=== PATIENT | male | born 1965 | race Caucasian/White ===

== ENCOUNTER 2016-11-14 12:08 | Emergency (ER) | payer MEDICARE, OTHER ==
[~2016-11-14] VITALS: Ht 188 cm; Wt 90.0 kg
[~2016-11-14 12:08] MED LIST: DIPH25CA85 PO; DIVA500T52 PO; RISP3 PO
[2016-11-14] MEDS ORDERED: GUAIFCF5L PO (12:21)
[2016-11-14 12:41] LABS: EOSINOPHILS % (AUTO) 1.3 % (1.0-6.0); HEMATOCRIT 43.4 % (41-53); HEMOGLOBIN 14.1 g/dL (13.5-17.5); LYMPHOCYTES # (AUTO) 0.9 K/uL (1.0-4.8); LYMPHOCYTES % (AUTO) 10.9 % (22.0-44.0); MEAN CORPUSCULAR HEMOGLOBIN 31.9 pg (26.0-34.0); MEAN CORPUSCULAR HGB CONC 32.5 G/dL (31.0-37.0); MEAN CORPUSCULAR VOLUME 98 fL (80-100); MONOCYTES # (AUTO) 0.5 K/uL (0.1-1.0); MONOCYTES % (AUTO) 6.5 % (2.0-9.0); NEUTROPHILS # (AUTO) 6.4 K/uL (1.8-7.7); NEUTROPHILS % (AUTO) 80.3 % (40.0-70.0); PLATELET COUNT (AUTO) 219 K/uL (150-450); RED BLOOD CELL COUNT(AUTO) 4.42 MIL/uL (4.50-5.90); WHITE BLOOD COUNT (AUTO) 7.9 K/uL (4.5-11.0)
[2016-11-14 12:51] LABS: ANION GAP 8 mmol/L (8-16); CALCIUM, TOTAL 9.2 mg/dL (8.8-10.5); CARBON DIOXIDE 27 mmol/L (22-29); CHLORIDE 100 mmol/L (98-107); CREATININE 1.26 mg/dL (0.60-1.30); GLOMERULAR FILTR. RATE CALC 60 mL/min (>60); POTASSIUM 4.3 mmol/L (3.5-5.1); SODIUM SERUM 135 mmol/L (136-145); UREA NITROGEN, BLOOD 8 mg/dL (7-18)
[2016-11-14 12:56] LABS: ALANINE AMINOTRANSFERASE 24 U/L (12-78); ALBUMIN 3.7 g/dL (3.4-5.0); ASPARTATE AMINOTRANSFERASE 21 U/L (15-37); BILIRUBIN,TOTAL 0.5 mg/dL (0.1-1.0); TOTAL PROTEIN, SERUM 6.5 g/dL (6.4-8.2)
[2016-11-14] MEDS ORDERED: SODIUM CHLORIDE 0.9% 1,000 ML IV ONE (15:45)
[2016-11-14 16:59] VITALS: BP 107/67
== END 2016-11-14 17:13 | disposition home or self-care (01) ==
LOC: EMS 12:11
DX: R42 Dizziness and giddiness (principal); E86.0 Dehydration; F10.129 Alcohol abuse with intoxication, unspecified; F17.210 Nicotine dependence, cigarettes, uncomplicated; Y90.0 Blood alcohol level of less than 20 mg/100 ml; Z88.8 Allergy status to other drugs, medicaments and biological substances
CPT/HCPCS: 36415; 71010; 80053; 85025; 96360; 99285; G0480; J7030

== ENCOUNTER 2020-02-26 11:01 | Emergency (ER) | payer MEDICARE, OTHER ==
[~2020-02-26] VITALS: Ht 185.4 cm; Wt 72.7 kg
[~2020-02-26 11:01] MED LIST changes: +DIVA-80 PO; -DIVA500T52 PO; +GUAIFCF5L PO; -RISP3 PO; +RISP3TAB14 PO
[2020-02-26] MEDS ORDERED: SODIUM CHLORIDE 0.9% 1,000 ML IV ONE (11:45)
[2020-02-26 12:46] LABS: BASOPHILS % (AUTO) 2.7 % (0.0-2.0); EOSINOPHILS % (AUTO) 5.2 % (1.0-6.0); HEMATOCRIT 38.8 % (41-53); LYMPHOCYTES # (AUTO) 1.3 K/uL (1.0-4.8); LYMPHOCYTES % (AUTO) 25.6 % (22.0-44.0); MEAN CORPUSCULAR HEMOGLOBIN 32.5 pg (26.0-34.0); MEAN CORPUSCULAR HGB CONC 33.6 G/dL (31.0-37.0); MEAN CORPUSCULAR VOLUME 97 fL (80-100); MONOCYTES # (AUTO) 0.4 K/uL (0.1-1.0); NEUTROPHILS % (AUTO) 58.5 % (40.0-70.0); PLATELET COUNT (AUTO) 212 K/uL (150-450); RED BLOOD CELL COUNT(AUTO) 4.01 MIL/uL (4.50-5.90); RED CELL DISTRIBUTION WIDTH 13.2 % (11.5-14.5)
[2020-02-26 12:56] LABS: ANION GAP 2 mmol/L (8-16); CARBON DIOXIDE 28 mmol/L (22-29); CHLORIDE 99 mmol/L (98-107); CREATININE 1.11 mg/dL (0.60-1.30); GLOMERULAR FILTR. RATE CALC > 60 mL/min (>60); GLUCOSE,RANDOM 86 mg/dL (70-110); POTASSIUM 3.7 mmol/L (3.5-5.1); SODIUM SERUM 129 mmol/L (136-145); UREA NITROGEN, BLOOD 8 mg/dL (7-18)
[2020-02-26 13:01] LABS: ALANINE AMINOTRANSFERASE 29 U/L (12-78); ALBUMIN 3.4 g/dL (3.4-5.0); ALKALINE PHOSPHATASE 64 U/L (46-116); ASPARTATE AMINOTRANSFERASE 16 U/L (15-37); BILIRUBIN,TOTAL 0.7 mg/dL (0.1-1.0); TOTAL PROTEIN, SERUM 6.1 g/dL (6.4-8.2)
[2020-02-26 13:03] LABS: LACTIC ACID 1.2 mmol/L (0.4-2.0)
[2020-02-26 14:00] VITALS: BP 92/46
== END 2020-02-26 14:30 | disposition home or self-care (01) ==
LOC: EMS 11:08
DX: R44.0 Auditory hallucinations (principal); E87.1 Hypo-osmolality and hyponatremia; F31.9 Bipolar disorder, unspecified; F17.210 Nicotine dependence, cigarettes, uncomplicated; Z88.8 Allergy status to other drugs, medicaments and biological substances
CPT/HCPCS: 36415; 71045; 80053; 82550; 83605; 85025; 87040; 99284; G0480

== ENCOUNTER 2020-03-15 15:52 | Emergency (ER) | payer MEDICARE, OTHER ==
[~2020-03-15] VITALS: Ht 188 cm; Wt 88.6 kg
[2020-03-15 15:57] VITALS: BP 92/55
== END 2020-03-15 18:04 | disposition home or self-care (01) ==
LOC: EMS 15:52
DX: F20.9 Schizophrenia, unspecified (principal); F31.9 Bipolar disorder, unspecified; F17.210 Nicotine dependence, cigarettes, uncomplicated; Z88.8 Allergy status to other drugs, medicaments and biological substances

== ENCOUNTER 2020-06-28 21:24 | Emergency (ER) | payer MEDICARE, OTHER ==
[~2020-06-28] VITALS: Ht 188 cm; Wt 90.0 kg
[~2020-06-28 21:24] MED LIST changes: -GUAIFCF5L PO; -RISP3TAB14 PO; +RISP3TAB35 PO
[2020-06-28 22:30] VITALS: BP 129/88
[2020-06-28 23:38] LABS: COVID AG,FIA SOURCE NASAL SWAB
[2020-06-29 00:13] LABS: AMPHET/METH SCREEN,URINE NEGATIVE (NEGATIVE); BARBITURATE SCREEN, URINE NEGATIVE (NEGATIVE); BENZODIAZEPINES SCREEN,URINE NEGATIVE (NEGATIVE); CANNABINOID SCREEN,URINE NEGATIVE (NEGATIVE); COCAINE SCREEN,URINE NEGATIVE (NEGATIVE); METHADONE SCREEN, URINE NEGATIVE (NEGATIVE); OPIATE SCREEN,URINE NEGATIVE (NEGATIVE)
[2020-06-29 00:15] LABS: PHENCYCLIDINE SCREEN,URINE NEGATIVE (NEGATIVE)
== END 2020-06-29 07:32 | disposition home or self-care (01) ==
LOC: EMS 21:24
DX: R45.851 Suicidal ideations (principal); F31.9 Bipolar disorder, unspecified; F20.9 Schizophrenia, unspecified; F17.210 Nicotine dependence, cigarettes, uncomplicated; Z20.828 Contact with and (suspected) exposure to other viral communicable diseases; Z88.8 Allergy status to other drugs, medicaments and biological substances
CPT/HCPCS: 87426

== ENCOUNTER 2020-07-01 01:58 | Emergency (ER) | payer MEDICARE, OTHER ==
[~2020-07-01] VITALS: Ht 188 cm; Wt 72.7 kg
[2020-07-01 04:48] VITALS: BP 123/72
== END 2020-07-01 05:57 | disposition home or self-care (01) ==
LOC: EMS 02:00
DX: F20.9 Schizophrenia, unspecified (principal); F17.210 Nicotine dependence, cigarettes, uncomplicated; Z88.8 Allergy status to other drugs, medicaments and biological substances; Z79.899 Other long term (current) drug therapy
CPT/HCPCS: Z7502

== ENCOUNTER 2020-08-25 10:50 | Inpatient (IN) | payer MEDICARE, MEDICAID ==
[~2020-08-25] VITALS: Ht 188 cm; Wt 75.8 kg
[2020-08-25 11:33] LABS: BASOPHILS % (AUTO) 1.3 % (0.0-2.0); EOSINOPHILS % (AUTO) 2.4 % (1.0-6.0); HEMATOCRIT 38.5 % (41-53); LYMPHOCYTES # (AUTO) 1.4 K/uL (1.0-4.8); MEAN CORPUSCULAR HEMOGLOBIN 33.4 pg (26.0-34.0); MEAN CORPUSCULAR HGB CONC 33.8 G/dL (31.0-37.0); MEAN CORPUSCULAR VOLUME 99 fL (80-100); MONOCYTES # (AUTO) 0.7 K/uL (0.1-1.0); MONOCYTES % (AUTO) 7.1 % (2.0-9.0); NEUTROPHILS # (AUTO) 7.4 K/uL (1.8-7.7); NEUTROPHILS % (AUTO) 75.2 % (40.0-70.0); PLATELET COUNT (AUTO) 224 K/uL (150-450); RED CELL DISTRIBUTION WIDTH 13.5 % (11.5-14.5)
[2020-08-25 11:43] LABS: ANION GAP 4 mmol/L (8-16); CALCIUM, TOTAL 9.2 mg/dL (8.8-10.5); CARBON DIOXIDE 31 mmol/L (22-29); CHLORIDE 100 mmol/L (98-107); GLOMERULAR FILTR. RATE CALC > 60 mL/min (>60); GLUCOSE,RANDOM 108 mg/dL (70-110); POTASSIUM 4.4 mmol/L (3.5-5.1); SODIUM SERUM 135 mmol/L (136-145); UREA NITROGEN, BLOOD 10 mg/dL (7-18)
[2020-08-25 11:48] LABS: ALANINE AMINOTRANSFERASE 19 U/L (12-78); ALBUMIN 3.5 g/dL (3.4-5.0); ALKALINE PHOSPHATASE 73 U/L (46-116); ASPARTATE AMINOTRANSFERASE 16 U/L (15-37); BILIRUBIN,TOTAL 0.5 mg/dL (0.1-1.0); TOTAL PROTEIN, SERUM 6.7 g/dL (6.4-8.2)
[2020-08-25] MEDS ORDERED: ZOLPIDEM TARTRATE 5 MG TABLET PO PRN (12:30)
[2020-08-25] MEDS ORDERED: LORazepam 2 MG TABLET PO PRN (12:30)
[2020-08-25] MEDS ORDERED: ChlorproMAZINE HCL 100 MG TABLET PO PRN (12:30)
[2020-08-25 13:06] LABS: COVID AG,FIA SOURCE NASOPHARYNGEAL
[2020-08-25 13:17] LABS: APPEARANCE,URINE CLEAR (CLEAR); BILIRUBIN,URINE NEGATIVE (NEGATIVE); GLUCOSE, URINE (UA) NEGATIVE (NEGATIVE); KETONES,URINE NEGATIVE (NEGATIVE); LEUKOCYTE ESTERASE ,URINE NEGATIVE (NEGATIVE); NITRATE,URINE NEGATIVE (NEGATIVE); OCCULT BLOOD,URINE NEGATIVE (NEGATIVE); PROTEIN,URINE NEGATIVE (NEGATIVE); UROBILINOGEN,URINE 0.2 mg/dL (<=1.0)
[2020-08-25 13:25] LABS: AMPHET/METH SCREEN,URINE NEGATIVE (NEGATIVE); BARBITURATE SCREEN, URINE NEGATIVE (NEGATIVE); BENZODIAZEPINES SCREEN,URINE NEGATIVE (NEGATIVE); CANNABINOID SCREEN,URINE NEGATIVE (NEGATIVE); COCAINE SCREEN,URINE NEGATIVE (NEGATIVE); METHADONE SCREEN, URINE NEGATIVE (NEGATIVE); OPIATE SCREEN,URINE NEGATIVE (NEGATIVE)
[2020-08-25 13:26] LABS: PHENCYCLIDINE SCREEN,URINE NEGATIVE (NEGATIVE)
[2020-08-25 14:44] VITALS: BP 115/79
[2020-08-25 14:49] VITALS: BP 115/79
[2020-08-25] MEDS ORDERED: GuaiFENesin/D-METHORPHAN [SUGAR-FREE] 200-20MG/10 ML SYRUP UDCUP PO PRN (15:30)
[2020-08-25] MEDS ORDERED: PROMETHAZINE HCL 25 MG TABLET PO PRN (15:30)
[2020-08-25] MEDS ORDERED: ACETAMINOPHEN 325 MG TABLET PO PRN (15:30)
[2020-08-25] MEDS ORDERED: MAGNESIUM HYDROXIDE SUSPENSION 30 ML UDCUP PO PRN (15:30)
[2020-08-25] MEDS ORDERED: MAG HYDROX/AL HYDROX/SIMETH ES 30 ML SUSPENSION UDCUP PO PRN (15:30)
[2020-08-25] MEDS ORDERED: TUBERCULIN, PURIFIED PROTEIN DERIVATIVE 5 TU/0.1 ML SYRINGE ID ONE (15:30)
[2020-08-25] MEDS ORDERED: HydrOXYzine PAMOATE 50 MG CAPSULE PO PRN (15:30)
[2020-08-25] MEDS ORDERED: OLANZapine 5 MG RAPDIS TABLET PO PRN (15:30)
[2020-08-25] MEDS ORDERED: LOPERAMIDE HCL 2 MG CAPSULE PO PRN (15:30)
[2020-08-25 16:00] VITALS: BP 109/68
[2020-08-25] MEDS: THIAMINE 100 MG TABLET PO SCH (17:36)
[2020-08-25] MEDS: DiphenhydrAMINE HCL 25 MG CAPSULE PO SCH (17:39)
[2020-08-25] MEDS: OLANZapine 5 MG RAPDIS TABLET PO SCH (21:00)
[2020-08-25] MEDS: DIVALPROEX SODIUM 500 MG ER TABLET PO SCH (21:00)
[2020-08-25] MEDS: MELATONIN 5 MG TABLET PO SCH (21:00)
[2020-08-25] MEDS ORDERED: RisperiDONE 3 MG TABLET PO SCH (21:00)
[2020-08-26 07:01] LABS: HEMOGLOBIN A1C 5.1 % (3.8-5.6)
[2020-08-26 07:03] LABS: CHOL/HDL RATIO 2.9 (4.2-7.3); FREE T4 (FREE THYROXINE) 0.98 ng/dL (0.76-1.46); THYROID STIMULATING HORMONE 3.34 uIU/mL (0.36-3.74)
[2020-08-26] MEDS: MULTIVITAMINS WITH MINERALS, THERAPEUTIC TABLET PO SCH (08:21)
[2020-08-26] MEDS: DIVALPROEX SODIUM 500 MG ER TABLET PO SCH ×2 (08:21→21:00)
[2020-08-26] MEDS: FOLIC ACID 1 MG TABLET PO SCH (08:22)
[2020-08-26] MEDS: THIAMINE 100 MG TABLET PO SCH ×2 (08:22→16:13)
[2020-08-26] MEDS: NALTREXONE HCL 50 MG TABLET PO SCH (08:22)
[2020-08-26] MEDS: OMEGA-3/DHA/EPA/FISH OIL 1,000 MG CAPSULE PO SCH (08:22)
[2020-08-26] MEDS: DiphenhydrAMINE HCL 25 MG CAPSULE PO SCH ×2 (08:26→16:13)
[2020-08-26 09:55] VITALS: BP 130/75
[2020-08-26 16:16] VITALS: BP 126/70
[2020-08-26] MEDS: MELATONIN 5 MG TABLET PO SCH (21:00)
[2020-08-26] MEDS: OLANZapine 5 MG RAPDIS TABLET PO SCH (21:00)
[2020-08-26] MEDS ORDERED: MELA5TAB3 PO (21:15)
[2020-08-26] MEDS ORDERED: OLAN5TAB30 PO (21:15)
[2020-08-26] MEDS ORDERED: NALT50TA PO (21:15)
[2020-08-26] MEDS ORDERED: OMEG-135 PO (21:15)
[2020-08-26] MEDS ORDERED: DIVA-80 PO (21:15)
[2020-08-26] MEDS ORDERED: DIPH25 PO (21:15)
[2020-08-27] MEDS: FOLIC ACID 1 MG TABLET PO SCH (09:07)
[2020-08-27] MEDS: OMEGA-3/DHA/EPA/FISH OIL 1,000 MG CAPSULE PO SCH (09:07)
[2020-08-27] MEDS: DiphenhydrAMINE HCL 25 MG CAPSULE PO SCH (09:07)
[2020-08-27] MEDS: NALTREXONE HCL 50 MG TABLET PO SCH (09:07)
[2020-08-27] MEDS: MULTIVITAMINS WITH MINERALS, THERAPEUTIC TABLET PO SCH (09:08)
[2020-08-27] MEDS: THIAMINE 100 MG TABLET PO SCH (09:08)
[2020-08-27] MEDS: DIVALPROEX SODIUM 500 MG ER TABLET PO SCH (09:09)
[2020-08-27] MEDS ORDERED: FOLI-130 PO (10:32)
[2020-08-27] MEDS ORDERED: THIA100T80 PO (10:32)
[2020-08-27] MEDS ORDERED: MULT-1239 PO (10:32)
== END 2020-08-27 12:10 | disposition home or self-care (01) | DRG 885 ==
LOC: EMS 10:50 → 3EX 13:48
PROVIDERS: ADMIT Psychiatry & Neurology Psychiatry; ATTEND Psychiatry & Neurology Psychiatry
DX: F20.0 Paranoid schizophrenia (principal); E87.1 Hypo-osmolality and hyponatremia; R45.851 Suicidal ideations; F31.9 Bipolar disorder, unspecified; R63.0 Anorexia; Z68.21 Body mass index [BMI] 21.0-21.9, adult; Z88.8 Allergy status to other drugs, medicaments and biological substances; Z91.19 Patient's noncompliance with other medical treatment and regimen; Z91.5 Personal history of self-harm; F17.200 Nicotine dependence, unspecified, uncomplicated; J44.9 Chronic obstructive pulmonary disease, unspecified; E03.9 Hypothyroidism, unspecified; E78.5 Hyperlipidemia, unspecified; K21.9 Gastro-esophageal reflux disease without esophagitis; R10.13 Epigastric pain; I10 Essential (primary) hypertension; D64.9 Anemia, unspecified; N40.0 Benign prostatic hyperplasia without lower urinary tract symptoms; Z20.822 Contact with and (suspected) exposure to COVID-19
CPT/HCPCS: 83036; 84439; 84443; 86592; 87426; 99285; A9575; G0378; G0480

== ENCOUNTER 2021-07-17 13:25 | Emergency (ER) | payer MEDICARE, OTHER ==
[~2021-07-17] VITALS: Ht 188 cm; Wt 90.0 kg
[~2021-07-17 13:25] MED LIST changes: -DIPH25CA85 PO; -DIVA-80 PO; +FOLI-130 PO; +MELA5TAB40 PO; +MULT-1239 PO; +NALT50TA PO; +OMEG-135 PO; +PALI156D IM; -RISP3TAB35 PO
[2021-07-17 13:28] VITALS: BP 135/69
== END 2021-07-17 16:48 | disposition left against medical advice (07) ==
LOC: EMS 13:25
DX: R45.851 Suicidal ideations (principal); F41.9 Anxiety disorder, unspecified; F20.9 Schizophrenia, unspecified; Z88.8 Allergy status to other drugs, medicaments and biological substances; Z79.899 Other long term (current) drug therapy
CPT/HCPCS: 99284

== ENCOUNTER 2021-10-31 01:54 | Emergency (ER) | payer MEDICARE, OTHER ==
[~2021-10-31] VITALS: Ht 188 cm; Wt 81.8 kg
[~2021-10-31 01:54] MED LIST changes: +OMEG-108 PO; -OMEG-135 PO
[2021-10-31 02:13] VITALS: BP 125/73
[2021-10-31] MEDS ORDERED: RISP0.5T39 PO (02:17)
[2021-10-31] MEDS ORDERED: DIVA125T32 PO (02:17)
[2021-10-31 02:24] LABS: EOSINOPHILS % (AUTO) 4.6 % (1.0-6.0); HEMATOCRIT 37.8 % (41-53); HEMOGLOBIN 13.2 g/dL (13.5-17.5); LYMPHOCYTES # (AUTO) 1.8 K/uL (1.0-4.8); LYMPHOCYTES % (AUTO) 25.9 % (22.0-44.0); MEAN CORPUSCULAR HEMOGLOBIN 33.2 pg (26.0-34.0); MEAN CORPUSCULAR HGB CONC 34.8 G/dL (31.0-37.0); MEAN CORPUSCULAR VOLUME 95 fL (80-100); MONOCYTES # (AUTO) 0.7 K/uL (0.1-1.0); MONOCYTES % (AUTO) 10.5 % (2.0-9.0); NEUTROPHILS # (AUTO) 3.9 K/uL (1.8-7.7); PLATELET COUNT (AUTO) 234 K/uL (150-450); RED BLOOD CELL COUNT(AUTO) 3.97 MIL/uL (4.50-5.90); RED CELL DISTRIBUTION WIDTH 13.8 % (11.5-14.5)
[2021-10-31 02:32] LABS: ANION GAP 5 mmol/L (8-16); CALCIUM, TOTAL 9.4 mg/dL (8.8-10.5); CARBON DIOXIDE 33 mmol/L (22-29); CHLORIDE 97 mmol/L (98-107); CREATININE 0.89 mg/dL (0.60-1.30); GLOMERULAR FILTR. RATE CALC > 60 mL/min (>60); GLUCOSE,RANDOM 76 mg/dL (70-110); POTASSIUM 3.8 mmol/L (3.5-5.1); SODIUM SERUM 135 mmol/L (136-145); UREA NITROGEN, BLOOD 6 mg/dL (7-18)
[2021-10-31 02:39] LABS: ALANINE AMINOTRANSFERASE 17 U/L (12-78); ALBUMIN 3.8 g/dL (3.4-5.0); ALKALINE PHOSPHATASE 96 U/L (46-116); ASPARTATE AMINOTRANSFERASE 9 U/L (15-37); BILIRUBIN,TOTAL 0.4 mg/dL (0.1-1.0); TOTAL PROTEIN, SERUM 6.9 g/dL (6.4-8.2)
[2021-10-31 03:08] LABS: COVID AG,FIA SOURCE NASOPHARYNGEAL
== END 2021-10-31 05:36 | disposition home or self-care (01) ==
LOC: EMS 01:54
DX: F20.9 Schizophrenia, unspecified (principal); Z20.822 Contact with and (suspected) exposure to COVID-19; Z88.8 Allergy status to other drugs, medicaments and biological substances
CPT/HCPCS: 36415; 80053; 85025; 87426; 99284; G0480

== ENCOUNTER 2022-07-12 00:26 | Inpatient (IN) | payer MEDICARE, MEDICAID ==
[~2022-07-12] VITALS: Ht 188 cm; Wt 77.8 kg
[~2022-07-12 00:26] MED LIST changes: +DIVA125T32 PO; -OMEG-108 PO; +OMEG-135 PO; +RISP0.5T39 PO
[2022-07-12 02:25] LABS: BASOPHILS % (AUTO) 1.5 % (0.0-2.0); EOSINOPHILS % (AUTO) 5.2 % (1.0-6.0); HEMATOCRIT 36.4 % (41-53); HEMOGLOBIN 12.8 g/dL (13.5-17.5); LYMPHOCYTES % (AUTO) 27.6 % (22.0-44.0); MEAN CORPUSCULAR HEMOGLOBIN 33.9 pg (26.0-34.0); MEAN CORPUSCULAR HGB CONC 35.1 G/dL (31.0-37.0); MEAN CORPUSCULAR VOLUME 97 fL (80-100); MONOCYTES # (AUTO) 0.7 K/uL (0.1-1.0); MONOCYTES % (AUTO) 8.8 % (2.0-9.0); NEUTROPHILS # (AUTO) 4.2 K/uL (1.8-7.7); NEUTROPHILS % (AUTO) 56.9 % (40.0-70.0); PLATELET COUNT (AUTO) 239 K/uL (150-450); RED BLOOD CELL COUNT(AUTO) 3.78 MIL/uL (4.50-5.90); RED CELL DISTRIBUTION WIDTH 13.8 % (11.5-14.5)
[2022-07-12 02:33] LABS: AMPHET/METH SCREEN,URINE NEGATIVE (NEGATIVE); BARBITURATE SCREEN, URINE NEGATIVE (NEGATIVE); BENZODIAZEPINES SCREEN,URINE NEGATIVE (NEGATIVE); CANNABINOID SCREEN,URINE NEGATIVE (NEGATIVE); COCAINE SCREEN,URINE NEGATIVE (NEGATIVE); METHADONE SCREEN, URINE NEGATIVE (NEGATIVE); OPIATE SCREEN,URINE NEGATIVE (NEGATIVE)
[2022-07-12 02:34] LABS: ANION GAP 1 mmol/L (8-16); CALCIUM, TOTAL 9.4 mg/dL (8.8-10.5); CARBON DIOXIDE 34 mmol/L (22-29); CHLORIDE 97 mmol/L (98-107); CREATININE 1.03 mg/dL (0.60-1.30); GLUCOSE,RANDOM 82 mg/dL (70-110); POTASSIUM 4.5 mmol/L (3.5-5.1); SODIUM SERUM 132 mmol/L (136-145); UREA NITROGEN, BLOOD 14 mg/dL (7-18)
[2022-07-12 02:34] LABS: PHENCYCLIDINE SCREEN,URINE NEGATIVE (NEGATIVE)
[2022-07-12 02:35] LABS: GLOMERULAR FILTR. RATE CALC > 60 mL/min (>60)
[2022-07-12 02:41] LABS: ALANINE AMINOTRANSFERASE 15 U/L (12-78); ALBUMIN 3.7 g/dL (3.4-5.0); ALKALINE PHOSPHATASE 104 U/L (46-116); ASPARTATE AMINOTRANSFERASE 15 U/L (15-37); BILIRUBIN,TOTAL 0.4 mg/dL (0.1-1.0); TOTAL PROTEIN, SERUM 6.9 g/dL (6.4-8.2); VALPROIC ACID 40 mcg/mL (50-100)
[2022-07-12] MEDS ORDERED: RisperiDONE 1 MG TABLET PO ONE (02:45)
[2022-07-12 07:10] LABS: COVID AG,FIA SOURCE NASOPHARYNGEAL
[2022-07-12] MEDS ORDERED: LORazepam 2 MG TABLET PO PRN (07:15)
[2022-07-12] MEDS ORDERED: HALOPERIDOL 5 MG TABLET PO PRN (07:15)
[2022-07-12] MEDS ORDERED: ZOLPIDEM TARTRATE 10 MG TABLET PO PRN (07:15)
[2022-07-12 11:36] VITALS: BP 130/71
[2022-07-12] MEDS ORDERED: PNEUMOCOCCAL VACCINE POLYVALENT 0.5 ML VIAL [PPSV23] IM. ONE (12:00)
[2022-07-12] MEDS ORDERED: INFLUENZA VIRUS VACCINE QVS 2022-23 (6MO+)/PF 60 MCG/0.5 ML SYRINGE IM. ONE (12:15)
[2022-07-12] MEDS ORDERED: RisperiDONE 1 MG TABLET PO PRN (18:15)
[2022-07-12] MEDS ORDERED: LOPERAMIDE HCL 2 MG CAPSULE PO PRN ×3 (18:15)
[2022-07-12] MEDS ORDERED: HydrOXYzine PAMOATE 50 MG CAPSULE PO PRN ×3 (18:15)
[2022-07-12] MEDS ORDERED: GuaiFENesin/D-METHORPHAN [SUGAR-FREE] 200-20MG/10 ML SYRUP UDCUP PO PRN ×3 (18:15)
[2022-07-12] MEDS ORDERED: CYANOCOBALAMIN 1,000 MCG/ML VIAL IM ONE ×3 (18:15)
[2022-07-12] MEDS ORDERED: TUBERCULIN, PURIFIED PROTEIN DERIVATIVE 5 TU/0.1 ML SYRINGE ID ONE (18:30)
[2022-07-12 20:13] VITALS: BP 125/67
[2022-07-12] MEDS: MELATONIN 5 MG TABLET PO SCH (20:30)
[2022-07-12] MEDS: RisperiDONE 4 MG TABLET PO SCH (20:31)
[2022-07-12] MEDS: DIVALPROEX SODIUM 500 MG ER TABLET PO SCH (20:31)
[2022-07-12] MEDS: DiphenhydrAMINE HCL 25 MG CAPSULE PO SCH (20:31)
[2022-07-13 08:30] VITALS: BP 129/66
[2022-07-13] MEDS ORDERED: FOLIC ACID 1 MG TABLET PO SCH ×2 (09:00)
[2022-07-13] MEDS ORDERED: THIAMINE 100 MG TABLET PO SCH ×2 (09:00)
[2022-07-13] MEDS ORDERED: MULTIVITAMINS WITH MINERALS, THERAPEUTIC TABLET PO SCH ×2 (09:00)
[2022-07-13] MEDS: NALTREXONE HCL 50 MG TABLET PO SCH (09:18)
[2022-07-13] MEDS: MULTIVITAMINS WITH MINERALS, THERAPEUTIC TABLET PO SCH (09:18)
[2022-07-13] MEDS: OMEGA-3/DHA/EPA/FISH OIL 1,000 MG CAPSULE PO SCH (09:18)
[2022-07-13] MEDS: FOLIC ACID 1 MG TABLET PO SCH (09:19)
[2022-07-13] MEDS: THIAMINE 100 MG TABLET PO SCH ×2 (09:19→16:55)
[2022-07-13] MEDS ORDERED: RISP4TAB73 PO (14:55)
[2022-07-13] MEDS ORDERED: MELA5TAB40 PO (14:55)
[2022-07-13] MEDS ORDERED: NALT50TA PO (14:55)
[2022-07-13] MEDS ORDERED: ZOLP10TA2 PO (14:55)
[2022-07-13] MEDS ORDERED: DIPH25CA85 PO (14:55)
[2022-07-13] MEDS ORDERED: DIVA-80 PO (14:55)
[2022-07-13 20:10] VITALS: BP 126/72
[2022-07-13] MEDS: DIVALPROEX SODIUM 500 MG ER TABLET PO SCH (20:13)
[2022-07-13] MEDS: DiphenhydrAMINE HCL 25 MG CAPSULE PO SCH (20:13)
[2022-07-13] MEDS: RisperiDONE 4 MG TABLET PO SCH (20:13)
[2022-07-13] MEDS: MELATONIN 5 MG TABLET PO SCH (20:13)
[2022-07-14 08:21] VITALS: BP 130/72
[2022-07-14] MEDS: NALTREXONE HCL 50 MG TABLET PO SCH (08:46)
[2022-07-14] MEDS: FOLIC ACID 1 MG TABLET PO SCH (08:46)
[2022-07-14] MEDS: THIAMINE 100 MG TABLET PO SCH (08:46)
[2022-07-14] MEDS: MULTIVITAMINS WITH MINERALS, THERAPEUTIC TABLET PO SCH (08:46)
[2022-07-14] MEDS: OMEGA-3/DHA/EPA/FISH OIL 1,000 MG CAPSULE PO SCH (08:46)
== END 2022-07-14 09:00 | disposition home or self-care (01) | DRG 885 ==
LOC: EMS 00:26 → B2X 06:00
PROVIDERS: ADMIT Psychiatry & Neurology Psychiatry; ATTEND Psychiatry & Neurology Psychiatry
DX: F25.9 Schizoaffective disorder, unspecified (principal); Z20.822 Contact with and (suspected) exposure to COVID-19; J44.9 Chronic obstructive pulmonary disease, unspecified; D64.9 Anemia, unspecified; K59.00 Constipation, unspecified; E55.9 Vitamin D deficiency, unspecified; Z88.8 Allergy status to other drugs, medicaments and biological substances; Z72.0 Tobacco use; Z71.6 Tobacco abuse counseling
CPT/HCPCS: 80053; 80164; 80307; 85025; 99285; G0480; J3420; Q9967

== ENCOUNTER 2023-05-09 18:42 | Emergency (ER) | payer MEDICARE, OTHER ==
[~2023-05-09] VITALS: Ht 188 cm; Wt 74.4 kg
[~2023-05-09 18:42] MED LIST changes: +DIPH25CA85 PO; -DIVA125T32 PO; +DIVA500T53 PO; -FOLI-130 PO; -MULT-1239 PO; -OMEG-135 PO; -PALI156D IM; -RISP0.5T39 PO; +RISP4TAB73 PO
[2023-05-09 19:38] VITALS: BP 127/73; PULSE 63; RESP 18; TEMP 98.9
[2023-05-09] MEDS ORDERED: RisperiDONE 1 MG TABLET PO ONE (20:00)
[2023-05-09] MEDS ORDERED: DiphenhydrAMINE HCL 25 MG CAPSULE PO ONE (20:00)
[2023-05-09] MEDS ORDERED: LORazepam 1 MG TABLET PO ONE (20:00)
[2023-05-09 20:05] LABS: COVID AG,FIA SOURCE NASAL SWAB
[2023-05-09 20:13] LABS: BASOPHILS % (AUTO) 1.1 % (0.0-2.0); EOSINOPHILS % (AUTO) 3.4 % (1.0-6.0); HEMATOCRIT 34.8 % (41-53); HEMOGLOBIN 11.9 g/dL (13.5-17.5); LYMPHOCYTES # (AUTO) 1.1 K/uL (1.0-4.8); LYMPHOCYTES % (AUTO) 15.2 % (22.0-44.0); MEAN CORPUSCULAR HEMOGLOBIN 34.5 pg (26.0-34.0); MEAN CORPUSCULAR HGB CONC 34.2 G/dL (31.0-37.0); MEAN CORPUSCULAR VOLUME 101 fL (80-100); MONOCYTES # (AUTO) 0.6 K/uL (0.1-1.0); MONOCYTES % (AUTO) 8.5 % (2.0-9.0); NEUTROPHILS # (AUTO) 5.4 K/uL (1.8-7.7); NEUTROPHILS % (AUTO) 71.8 % (40.0-70.0); PLATELET COUNT (AUTO) 198 K/uL (150-450); RED BLOOD CELL COUNT(AUTO) 3.45 MIL/uL (4.50-5.90); WHITE BLOOD COUNT (AUTO) 7.5 K/uL (4.5-11.0)
[2023-05-09 20:22] LABS: SARS-COV2 (COVID) ANTIGEN,FIA Negative (Negative)
[2023-05-09 20:27] LABS: ALCOHOL, BLOOD (SERUM) < 3 mg/dL (0-10); ANION GAP 7 mmol/L (8-16); CALCIUM, TOTAL 9.4 mg/dL (8.8-10.5); CARBON DIOXIDE 32 mmol/L (22-29); CHLORIDE 99 mmol/L (98-107); CREATININE 0.97 mg/dL (0.60-1.30); GLOMERULAR FILTR. RATE CALC > 60 mL/min (>60); GLUCOSE,RANDOM 54 mg/dL (70-110); POTASSIUM 3.5 mmol/L (3.5-5.1); SODIUM SERUM 138 mmol/L (136-145); UREA NITROGEN, BLOOD 13 mg/dL (7-18)
[2023-05-09 20:34] LABS: ALANINE AMINOTRANSFERASE 21 U/L (12-78); ALBUMIN 3.6 g/dL (3.4-5.0); ALKALINE PHOSPHATASE 85 U/L (46-116); ASPARTATE AMINOTRANSFERASE 12 U/L (15-37); BILIRUBIN,TOTAL 0.6 mg/dL (0.1-1.0); TOTAL PROTEIN, SERUM 6.7 g/dL (6.4-8.2)
== END 2023-05-09 21:55 | disposition home or self-care (01) ==
LOC: EMS 18:44
DX: F20.9 Schizophrenia, unspecified (principal); F12.90 Cannabis use, unspecified, uncomplicated; Z88.8 Allergy status to other drugs, medicaments and biological substances; Z20.822 Contact with and (suspected) exposure to COVID-19
CPT/HCPCS: 99284; 87426; 80053; 80164; 85025; 36415; G0480

== ENCOUNTER 2023-11-27 11:46 | Emergency (ER) | payer MEDICARE, OTHER ==
[~2023-11-27] VITALS: Ht 188 cm; Wt 95.0 kg
[~2023-11-27 11:46] MED LIST changes: -NALT50TA PO; +NALT50TA6 PO; -RISP4TAB73 PO; +RISP4TAB94 PO
[2023-11-27 11:47] VITALS: TEMP 98.4
[2023-11-27] MEDS ORDERED: RISP2TAB45 PO (11:51)
[2023-11-27] MEDS ORDERED: DIVA-112 PO (11:51)
[2023-11-27 14:04] VITALS: BP 118/69; PULSE 90; RESP 18
== END 2023-11-27 14:31 | disposition home or self-care (01) ==
LOC: EMS 11:46
DX: Z43.3 Encounter for attention to colostomy (principal); F12.90 Cannabis use, unspecified, uncomplicated; Z88.1 Allergy status to other antibiotic agents; Z88.7 Allergy status to serum and vaccine; Z88.8 Allergy status to other drugs, medicaments and biological substances
CPT/HCPCS: 99281; Z7502

== ENCOUNTER 2023-12-21 12:47 | Emergency (ER) | payer MEDICARE, OTHER ==
[~2023-12-21] VITALS: Ht 188 cm; Wt 95.9 kg
[~2023-12-21 12:47] MED LIST changes: +DIVA-112 PO; -DIVA500T53 PO; -MELA5TAB40 PO; -NALT50TA6 PO; +RISP2TAB45 PO; -RISP4TAB94 PO
[2023-12-21 14:42] VITALS: BP 110/80; PULSE 88; RESP 16; TEMP 97
== END 2023-12-21 15:47 | disposition home or self-care (01) ==
LOC: EMS 13:13
DX: Z43.3 Encounter for attention to colostomy (principal); F20.9 Schizophrenia, unspecified; F12.90 Cannabis use, unspecified, uncomplicated
CPT/HCPCS: 99283; Z7502

== ENCOUNTER 2024-04-17 21:26 | Inpatient (IN) | payer MEDICARE, MEDICAID ==
[~2024-04-17] VITALS: Ht 188 cm; Wt 77.3 kg
[~2024-04-17 21:26] MED LIST changes: -DIPH25CA85 PO; -DIVA-112 PO; +DIVA-153 PO; +FLUO-418 PO; +LEVO25TA9 PO; +MELA5TAB40 PO; +METO25XL PO; +NALT50TA33 PO; +OLAN10TA26 PO; +OMEG-135 PO; -RISP2TAB45 PO
[2024-04-17 22:01] LABS: BASOPHILS % (AUTO) 1.2 % (0.0-2.0); EOSINOPHILS % (AUTO) 5.3 % (1.0-6.0); HEMATOCRIT 32.6 % (41-53); LYMPHOCYTES # (AUTO) 1.6 K/uL (1.0-4.8); LYMPHOCYTES % (AUTO) 26.8 % (22.0-44.0); MEAN CORPUSCULAR HEMOGLOBIN 32.4 pg (26.0-34.0); MEAN CORPUSCULAR HGB CONC 33.6 G/dL (31.0-37.0); MEAN CORPUSCULAR VOLUME 97 fL (80-100); MONOCYTES # (AUTO) 0.5 K/uL (0.1-1.0); MONOCYTES % (AUTO) 8.7 % (2.0-9.0); NEUTROPHILS # (AUTO) 3.5 K/uL (1.8-7.7); PLATELET COUNT (AUTO) 213 K/uL (150-450); RED BLOOD CELL COUNT(AUTO) 3.38 MIL/uL (4.50-5.90); RED CELL DISTRIBUTION WIDTH 14.9 % (11.5-14.5)
[2024-04-17 22:07] LABS: ANION GAP 3 mmol/L (8-16); CALCIUM, TOTAL 8.6 mg/dL (8.8-10.5); CARBON DIOXIDE 31 mmol/L (22-29); CHLORIDE 102 mmol/L (98-107); CREATININE 0.98 mg/dL (0.60-1.30); GLOMERULAR FILTR. RATE CALC > 60 mL/min (>60); GLUCOSE,RANDOM 82 mg/dL (70-110); POTASSIUM 4.6 mmol/L (3.5-5.1); SODIUM SERUM 136 mmol/L (136-145); UREA NITROGEN, BLOOD 6 mg/dL (7-18)
[2024-04-17 22:13] LABS: ALCOHOL, BLOOD (SERUM) < 3 mg/dL (0-10)
[2024-04-17 22:41] LABS: COVID AG,FIA SOURCE NASAL SWAB
[2024-04-17 22:52] LABS: ALCOHOL, URINE DRUG SCREEN NEGATIVE (NEGATIVE); AMPHET/METH SCREEN,URINE NEGATIVE (NEGATIVE); BARBITURATE SCREEN, URINE NEGATIVE (NEGATIVE); BENZODIAZEPINES SCREEN,URINE NEGATIVE (NEGATIVE); CANNABINOID SCREEN,URINE NEGATIVE (NEGATIVE); COCAINE SCREEN,URINE NEGATIVE (NEGATIVE); METHADONE SCREEN, URINE NEGATIVE (NEGATIVE); OPIATE SCREEN,URINE NEGATIVE (NEGATIVE); PHENCYCLIDINE SCREEN,URINE NEGATIVE (NEGATIVE)
[2024-04-17 23:04] LABS: SARS-COV2 (COVID) ANTIGEN,FIA Negative (Negative)
[2024-04-17] MEDS: DiphenhydrAMINE HCL 25 MG CAPSULE PO ONE (23:51)
[2024-04-17] MEDS: RisperiDONE 1 MG TABLET PO ONE (23:51)
[2024-04-18 12:15] VITALS: BP 136/77; PULSE 88; RESP 18; TEMP 97.6; O2SAT 0
[2024-04-18 12:55] VITALS: BP 135/76; PULSE 60; RESP 18; TEMP 97.6; O2SAT 99
[2024-04-18] MEDS ORDERED: RISP2TAB45 PO (13:27)
[2024-04-18] MEDS ORDERED: DIPH-1243 PO (13:27)
[2024-04-18] MEDS ORDERED: ATEN-73 PO (13:27)
[2024-04-18] MEDS ORDERED: LEVO50TA11 PO (13:27)
[2024-04-18] MEDS ORDERED: QUET100T34 PO (13:27)
[2024-04-18] MEDS ORDERED: DIVA-112 PO (13:27)
[2024-04-18] MEDS ORDERED: DIVALPROEX SODIUM 500 MG DR TABLET PO SCH (16:00)
[2024-04-18] MEDS: DIVALPROEX SODIUM 500 MG DR TABLET PO SCH (16:31)
[2024-04-18] MEDS ORDERED: NICOTINE 14 MG/24 HOUR PATCH TD PRN (18:15)
[2024-04-18 20:48] VITALS: BP 129/67; PULSE 64; RESP 18; TEMP 98.1; O2SAT 98
[2024-04-18] MEDS: OLANZapine 10 MG TABLET PO SCH (20:56)
[2024-04-18] MEDS: MELATONIN 5 MG TABLET PO SCH (20:56)
[2024-04-18] MEDS ORDERED: MELATONIN 5 MG TABLET PO SCH (21:00)
[2024-04-18] MEDS ORDERED: OLANZapine 10 MG TABLET PO SCH (21:00)
[2024-04-18 23:37] VITALS: BP 129/67; PULSE 64; RESP 18; TEMP 98.1; O2SAT 98
[2024-04-19] MEDS ORDERED: FLUoxetine HCL 20 MG CAPSULE PO SCH (09:00)
[2024-04-19] MEDS ORDERED: OMEGA-3/DHA/EPA/FISH OIL 1,000 MG CAPSULE PO SCH (09:00)
[2024-04-19] MEDS ORDERED: NALTREXONE HCL 50 MG TABLET PO SCH (09:00)
[2024-04-19 10:08] VITALS: BP 124/61; PULSE 61; RESP 18; TEMP 98.5; O2SAT 99
[2024-04-19] MEDS: OMEGA-3/DHA/EPA/FISH OIL 1,000 MG CAPSULE PO SCH (10:37)
[2024-04-19] MEDS: FLUoxetine HCL 20 MG CAPSULE PO SCH (10:37)
[2024-04-19] MEDS: NALTREXONE HCL 50 MG TABLET PO SCH (10:38)
[2024-04-19 20:53] VITALS: BP 146/73; PULSE 65; RESP 18; TEMP 98
[2024-04-20 08:36] VITALS: BP 127/74; PULSE 61; RESP 18; TEMP 97.5; O2SAT 97
[2024-04-20 22:52] VITALS: BP 131/67; PULSE 67; RESP 17; TEMP 97.1; O2SAT 98
[2024-04-21 09:54] VITALS: BP 118/70; PULSE 71; RESP 18; TEMP 98; O2SAT 98
[2024-04-21 21:41] VITALS: BP 110/58; PULSE 62; RESP 16; TEMP 97.2; O2SAT 97
[2024-04-22] MEDS: FERROUS SULFATE 325 MG EC TABLET PO SCH (06:40)
[2024-04-22 09:48] VITALS: BP 125/77; PULSE 58; RESP 18; TEMP 97.5; O2SAT 100
[2024-04-22 20:32] VITALS: BP 117/66; PULSE 65; RESP 19; TEMP 97.7; O2SAT 97
[2024-04-23 08:30] VITALS: BP 136/71; PULSE 78; RESP 18; TEMP 97.4; O2SAT 99
[2024-04-23 21:52] VITALS: RESP 18
[2024-04-24 09:16] VITALS: BP 134/63; PULSE 67; RESP 17; TEMP 97.8; O2SAT 0
[2024-04-24 23:00] VITALS: BP 124/71; PULSE 58; RESP 18; TEMP 97.8; O2SAT 98
[2024-04-25 12:35] VITALS: BP 122/63; PULSE 63; RESP 18; TEMP 96.4; O2SAT 99
[2024-04-25 22:06] VITALS: BP 137/76; PULSE 62; RESP 18; TEMP 98.2; O2SAT 98
[2024-04-26 08:30] VITALS: BP 126/65; PULSE 61; RESP 19; TEMP 98.1; O2SAT 95
[2024-04-26 22:07] VITALS: BP 116/55; PULSE 75; RESP 18; TEMP 97.4; O2SAT 100
[2024-04-27 08:55] VITALS: BP 129/86; PULSE 63; RESP 18; TEMP 98.8; O2SAT 100
[2024-04-27 21:48] VITALS: BP 146/75; PULSE 68; RESP 18; TEMP 97.9; O2SAT 98
[2024-04-27] MEDS: ZOLPIDEM TARTRATE 10 MG TABLET PO PRN (22:12)
[2024-04-28 09:23] VITALS: BP 148/76; PULSE 54; RESP 14; TEMP 97.6; O2SAT 99
[2024-04-28 21:58] VITALS: BP 146/79; PULSE 60; RESP 18; TEMP 98; O2SAT 100
[2024-04-29 10:42] VITALS: BP 107/60; PULSE 60; RESP 18; TEMP 97.6; O2SAT 98
[2024-04-29 20:58] VITALS: BP 127/67; PULSE 56; RESP 18; TEMP 97.2; O2SAT 98
[2024-04-30] MEDS: LORazepam 2 MG TABLET PO PRN (00:17)
[2024-04-30] MEDS: HALOPERIDOL 5 MG TABLET PO PRN (00:17)
[2024-04-30 08:50] VITALS: BP 124/49; PULSE 94; RESP 19; TEMP 96.4; O2SAT 98
[2024-04-30 21:00] VITALS: BP 141/72; PULSE 83; RESP 18; TEMP 98.5; O2SAT 98
[2024-05-01 08:31] VITALS: BP 130/67; PULSE 72; RESP 18; TEMP 97.8; O2SAT 99
[2024-05-01 21:41] VITALS: BP 99/53; PULSE 78; RESP 18; TEMP 97.8; O2SAT 97
[2024-05-02 10:15] VITALS: BP 124/81; PULSE 70; RESP 18; O2SAT 99
[2024-05-02 22:01] VITALS: BP 130/73; PULSE 65; RESP 18; TEMP 97.3; O2SAT 100
[2024-05-03 09:16] VITALS: BP 151/77; PULSE 77; RESP 18; TEMP 97; O2SAT 100
[2024-05-03 20:26] VITALS: BP 127/76; PULSE 69; RESP 18; TEMP 97.9; O2SAT 100
[2024-05-04] MEDS ORDERED: MAGNESIUM HYDROXIDE SUSPENSION 30 ML UDCUP PO PRN (14:30)
[2024-05-04] MEDS ORDERED: PETROLATUM,WHITE 28 GM JELLY TP PRN (14:30)
[2024-05-04] MEDS ORDERED: NICOTINE 14 MG/24 HOUR PATCH TD PRN (14:30)
[2024-05-04] MEDS ORDERED: ONDANSETRON 4 MG TABLET PO PRN (14:30)
[2024-05-04] MEDS ORDERED: ALBUTEROL SULFATE HFA 90 MCG/PUFF 8 GM INHALER IH PRN (14:30)
[2024-05-04] MEDS ORDERED: IBUPROFEN 400 MG TABLET PO PRN (14:30)
[2024-05-04] MEDS ORDERED: DOCUSATE SODIUM 100 MG CAPSULE PO PRN (14:30)
[2024-05-04] MEDS ORDERED: LOPERAMIDE HCL 2 MG CAPSULE PO PRN (14:30)
[2024-05-04] MEDS ORDERED: CloNIDine HCL 0.1 MG TABLET PO PRN (14:30)
[2024-05-04] MEDS ORDERED: GuaiFENesin/D-METHORPHAN [SUGAR-FREE] 200-20MG/10 ML SYRUP UDCUP PO PRN (14:30)
[2024-05-04] MEDS ORDERED: MAG HYDROX/ALUMINUM HYD/SIMETH ES 30 ML SUSPENSION UDCUP PO PRN (14:30)
[2024-05-04] MEDS ORDERED: ACETAMINOPHEN 325 MG TABLET PO PRN (14:30)
[2024-05-04 15:12] VITALS: BP 127/77; PULSE 68; RESP 19; TEMP 97.7; O2SAT 97
[2024-05-04 20:48] VITALS: BP 113/64; PULSE 75; RESP 18; TEMP 97.5; O2SAT 100
[2024-05-05 08:09] LABS: HEMOGLOBIN A1C 4.9 % (3.8-5.6)
[2024-05-05 08:13] LABS: CHOL/HDL RATIO 2.6 (4.2-7.3); THYROID STIMULATING HORMONE 7.07 uIU/mL (0.36-3.74)
[2024-05-05 09:55] VITALS: BP 129/71; PULSE 65; RESP 17; TEMP 97; O2SAT 97
[2024-05-05 20:56] VITALS: BP 144/73; PULSE 72; RESP 18; TEMP 97.6; O2SAT 98
[2024-05-06 10:00] VITALS: BP 130/72; PULSE 71; RESP 19; TEMP 97; O2SAT 98
[2024-05-06 22:16] VITALS: BP 140/83; PULSE 70; RESP 18; TEMP 97.2; O2SAT 98
[2024-05-07 09:05] VITALS: BP 140/82; PULSE 63; RESP 18; TEMP 97.2; O2SAT 96
[2024-05-07 20:43] VITALS: BP 138/103; PULSE 68; RESP 18; TEMP 97.5; O2SAT 96
[2024-05-08 09:00] VITALS: BP 110/58; PULSE 70; RESP 16; TEMP 98.1; O2SAT 99
[2024-05-08 21:44] VITALS: BP 127/69; PULSE 76; RESP 16; TEMP 98.6; O2SAT 97
[2024-05-09 08:00] VITALS: BP 111/59; PULSE 67; RESP 18; TEMP 97.6; O2SAT 98
[2024-05-09] MEDS ORDERED: FLUO-418 PO ×2 (12:47→15:44)
[2024-05-09] MEDS ORDERED: MELA5TAB40 PO ×2 (12:48→15:44)
[2024-05-09] MEDS ORDERED: NALT50TA33 PO ×2 (12:49→15:44)
[2024-05-09] MEDS ORDERED: OLAN10TA74 PO ×2 (12:51→15:44)
[2024-05-09] MEDS ORDERED: DIVA-112 PO (15:44)
== END 2024-05-09 15:10 | DRG 885 ==
LOC: EMS 21:26 → 3EX 04-18 12:43
PROVIDERS: ADMIT Psychiatry & Neurology Child & Adolescent Psychiatry; ATTEND Psychiatry & Neurology Psychiatry
PROC: GZHZZZZ Group Psychotherapy (ICD-10-PCS; principal; 2024-04-18)
PROC: GZ51ZZZ Individual Psychotherapy, Behavioral (ICD-10-PCS; 2024-04-18)
PROC: GZ56ZZZ Individual Psychotherapy, Supportive (ICD-10-PCS; 2024-04-18)
PROC: GZ58ZZZ Individual Psychotherapy, Cognitive-Behavioral (ICD-10-PCS; 2024-04-18)
DX: F25.0 Schizoaffective disorder, bipolar type (principal); Z93.3 Colostomy status; R45.851 Suicidal ideations; I10 Essential (primary) hypertension; D64.9 Anemia, unspecified; Z20.822 Contact with and (suspected) exposure to COVID-19; E03.9 Hypothyroidism, unspecified; E78.5 Hyperlipidemia, unspecified; Z87.891 Personal history of nicotine dependence; Z88.8 Allergy status to other drugs, medicaments and biological substances
CPT/HCPCS: 80048; 80061; 80164; 80307; 83036; 84443; 85025; 99285; G0378; G0480

== ENCOUNTER 2024-08-15 02:58 | Emergency (ER) | payer MEDICARE, MEDICAID ==
[~2024-08-15] VITALS: Ht 188 cm; Wt 90.9 kg
[~2024-08-15 02:58] MED LIST changes: +DIVA-112 PO; -DIVA-153 PO; -LEVO25TA9 PO; -METO25XL PO; -OLAN10TA26 PO; +OLAN10TA74 PO; -OMEG-135 PO
[2024-08-15 03:13] VITALS: TEMP 97.7
[2024-08-15 05:33] VITALS: BP 127/73; PULSE 74; RESP 18; O2SAT 100
== END 2024-08-15 07:05 | disposition home or self-care (01) ==
LOC: EMS 02:59
DX: F20.9 Schizophrenia, unspecified (principal); F17.210 Nicotine dependence, cigarettes, uncomplicated; Z59.819 Housing instability, housed unspecified; Z79.899 Other long term (current) drug therapy; Z88.8 Allergy status to other drugs, medicaments and biological substances
CPT/HCPCS: 99281; Z7502

== ENCOUNTER 2024-09-09 05:44 | Emergency (ER) | payer MEDICARE, OTHER ==
[~2024-09-09] VITALS: Ht 188 cm; Wt 90.0 kg
[2024-09-09 06:09] VITALS: TEMP 98
[2024-09-09 07:59] LABS: BASOPHILS % (AUTO) 1.8 % (0.0-2.0); EOSINOPHILS % (AUTO) 3.4 % (1.0-6.0); HEMOGLOBIN 12.6 g/dL (13.5-17.5); LYMPHOCYTES # (AUTO) 1.1 K/uL (1.0-4.8); LYMPHOCYTES % (AUTO) 21.2 % (22.0-44.0); MEAN CORPUSCULAR HEMOGLOBIN 31.5 pg (26.0-34.0); MEAN CORPUSCULAR HGB CONC 33.1 G/dL (31.0-37.0); MEAN CORPUSCULAR VOLUME 95 fL (80-100); MONOCYTES # (AUTO) 0.4 K/uL (0.1-1.0); MONOCYTES % (AUTO) 8.4 % (2.0-9.0); NEUTROPHILS # (AUTO) 3.4 K/uL (1.8-7.7); NEUTROPHILS % (AUTO) 65.2 % (40.0-70.0); PLATELET COUNT (AUTO) 207 K/uL (150-450); RED BLOOD CELL COUNT(AUTO) 3.99 MIL/uL (4.50-5.90); RED CELL DISTRIBUTION WIDTH 13.8 % (11.5-14.5); WHITE BLOOD COUNT (AUTO) 5.2 K/uL (4.5-11.0)
[2024-09-09 08:01] LABS: ANION GAP 3 mmol/L (8-16); CALCIUM, TOTAL 9.2 mg/dL (8.8-10.5); CARBON DIOXIDE 32 mmol/L (22-29); CHLORIDE 100 mmol/L (98-107); CREATININE 0.82 mg/dL (0.60-1.30); GLOMERULAR FILTR. RATE CALC > 60 mL/min (>60); GLUCOSE,RANDOM 90 mg/dL (70-110); POTASSIUM 4.2 mmol/L (3.5-5.1); SODIUM SERUM 135 mmol/L (136-145); UREA NITROGEN, BLOOD 11 mg/dL (7-18)
[2024-09-09 08:22] LABS: ALCOHOL, BLOOD (SERUM) < 3 mg/dL (0-10)
[2024-09-09 08:26] VITALS: BP 119/66; PULSE 60; RESP 15; O2SAT 97
[2024-09-09 08:40] LABS: COVID AG,FIA SOURCE NASAL SWAB
[2024-09-09 08:57] LABS: SARS-COV2 (COVID) ANTIGEN,FIA Negative (Negative)
== END 2024-09-09 09:24 | disposition home or self-care (01) ==
LOC: EMS 05:46
DX: F20.9 Schizophrenia, unspecified (principal); F17.210 Nicotine dependence, cigarettes, uncomplicated; Z88.8 Allergy status to other drugs, medicaments and biological substances; Z79.899 Other long term (current) drug therapy; Z72.89 Other problems related to lifestyle; Z20.822 Contact with and (suspected) exposure to COVID-19
CPT/HCPCS: 99284; 87426; 80048; 85025; 36415; G0480; 99283

== ENCOUNTER 2024-09-10 19:45 | Emergency (ER) | payer MEDICARE, OTHER ==
[~2024-09-10] VITALS: Ht 185.4 cm; Wt 100.0 kg
[2024-09-10 20:20] VITALS: TEMP 98
[2024-09-10 21:47] LABS: COVID AG,FIA SOURCE NASAL SWAB
[2024-09-10 22:13] LABS: SARS-COV2 (COVID) ANTIGEN,FIA Negative (Negative)
[2024-09-10 22:16] LABS: BASOPHILS % (AUTO) 1.2 % (0.0-2.0); EOSINOPHILS % (AUTO) 4.1 % (1.0-6.0); HEMATOCRIT 34.7 % (41-53); HEMOGLOBIN 11.6 g/dL (13.5-17.5); LYMPHOCYTES # (AUTO) 2.1 K/uL (1.0-4.8); LYMPHOCYTES % (AUTO) 29.7 % (22.0-44.0); MEAN CORPUSCULAR HEMOGLOBIN 31.6 pg (26.0-34.0); MEAN CORPUSCULAR HGB CONC 33.5 G/dL (31.0-37.0); MEAN CORPUSCULAR VOLUME 94 fL (80-100); MONOCYTES # (AUTO) 0.6 K/uL (0.1-1.0); MONOCYTES % (AUTO) 8.2 % (2.0-9.0); NEUTROPHILS % (AUTO) 56.8 % (40.0-70.0); PLATELET COUNT (AUTO) 208 K/uL (150-450); RED BLOOD CELL COUNT(AUTO) 3.67 MIL/uL (4.50-5.90); RED CELL DISTRIBUTION WIDTH 13.8 % (11.5-14.5); WHITE BLOOD COUNT (AUTO) 7.1 K/uL (4.5-11.0)
[2024-09-10 22:21] LABS: ANION GAP 4 mmol/L (8-16); CALCIUM, TOTAL 9.2 mg/dL (8.8-10.5); CARBON DIOXIDE 31 mmol/L (22-29); CHLORIDE 102 mmol/L (98-107); CREATININE 0.99 mg/dL (0.60-1.30); GLOMERULAR FILTR. RATE CALC > 60 mL/min (>60); GLUCOSE,RANDOM 89 mg/dL (70-110); SODIUM SERUM 137 mmol/L (136-145); UREA NITROGEN, BLOOD 13 mg/dL (7-18)
[2024-09-10 22:27] LABS: ALCOHOL, BLOOD (SERUM) < 3 mg/dL (0-10)
[2024-09-11 00:20] VITALS: BP 111/62; PULSE 71; RESP 16; O2SAT 100
== END 2024-09-11 00:52 | disposition home or self-care (01) ==
LOC: EMS 19:45
DX: F20.9 Schizophrenia, unspecified (principal); F17.210 Nicotine dependence, cigarettes, uncomplicated; Z79.899 Other long term (current) drug therapy; Z88.8 Allergy status to other drugs, medicaments and biological substances; Z20.822 Contact with and (suspected) exposure to COVID-19
CPT/HCPCS: 99285; 87426; 80048; 85025; 36415; G0480

== ENCOUNTER 2024-10-09 15:04 | Emergency (ER) | payer MEDICARE, OTHER ==
[~2024-10-09] VITALS: Ht 188 cm; Wt 84.1 kg
[~2024-10-09 15:04] MED LIST changes: +ATEN-73 PO; +DIPH50 PO; -FLUO-418 PO; +LEVO50TA11 PO; -MELA5TAB40 PO; -NALT50TA33 PO; -OLAN10TA74 PO; +QUET100T PO; +RISP2TAB45 PO
[2024-10-09 15:23] VITALS: BP 141/83; PULSE 85; RESP 18; TEMP 98.2; O2SAT 97
[2024-10-09 16:46] LABS: BASOPHILS % (AUTO) 1.2 % (0.0-2.0); EOSINOPHILS % (AUTO) 4.4 % (1.0-6.0); HEMATOCRIT 33.8 % (41-53); HEMOGLOBIN 11.5 g/dL (13.5-17.5); LYMPHOCYTES # (AUTO) 1.5 K/uL (1.0-4.8); LYMPHOCYTES % (AUTO) 26.1 % (22.0-44.0); MEAN CORPUSCULAR HGB CONC 33.9 G/dL (31.0-37.0); MEAN CORPUSCULAR VOLUME 94 fL (80-100); MONOCYTES # (AUTO) 0.6 K/uL (0.1-1.0); MONOCYTES % (AUTO) 10.6 % (2.0-9.0); NEUTROPHILS # (AUTO) 3.3 K/uL (1.8-7.7); NEUTROPHILS % (AUTO) 57.7 % (40.0-70.0); PLATELET COUNT (AUTO) 163 K/uL (150-450); RED BLOOD CELL COUNT(AUTO) 3.58 MIL/uL (4.50-5.90); RED CELL DISTRIBUTION WIDTH 14.2 % (11.5-14.5); WHITE BLOOD COUNT (AUTO) 5.7 K/uL (4.5-11.0)
[2024-10-09 16:48] LABS: ANION GAP 4 mmol/L (8-16); CALCIUM, TOTAL 8.8 mg/dL (8.8-10.5); CARBON DIOXIDE 32 mmol/L (22-29); CHLORIDE 99 mmol/L (98-107); CREATININE 0.94 mg/dL (0.60-1.30); GLOMERULAR FILTR. RATE CALC > 60 mL/min (>60); GLUCOSE,RANDOM 99 mg/dL (70-110); LIPASE 31 U/L (16-77); SODIUM SERUM 135 mmol/L (136-145); UREA NITROGEN, BLOOD 8 mg/dL (7-18)
== END 2024-10-09 19:25 | disposition home or self-care (01) ==
LOC: EMS 15:15
DX: K43.9 Ventral hernia without obstruction or gangrene (principal); F20.9 Schizophrenia, unspecified; F17.210 Nicotine dependence, cigarettes, uncomplicated; Z88.8 Allergy status to other drugs, medicaments and biological substances; Z79.899 Other long term (current) drug therapy
CPT/HCPCS: 80048; 83690; 85025; 99283

== ENCOUNTER 2024-11-28 22:33 | Emergency (ER) | payer MEDICARE, OTHER ==
[~2024-11-28] VITALS: Ht 188 cm; Wt 90.9 kg
[~2024-11-28 22:33] MED LIST changes: -DIPH50 PO; +SERT-158 PO
[2024-11-28 23:02] VITALS: BP 125/77; PULSE 64; RESP 16; TEMP 98.8; O2SAT 99
[2024-11-28 23:26] LABS: EOSINOPHILS % (AUTO) 2.9 % (1.0-6.0); HEMATOCRIT 34.6 % (41-53); HEMOGLOBIN 11.7 g/dL (13.5-17.5); LYMPHOCYTES # (AUTO) 1.9 K/uL (1.0-4.8); LYMPHOCYTES % (AUTO) 24.3 % (22.0-44.0); MEAN CORPUSCULAR HEMOGLOBIN 31.9 pg (26.0-34.0); MEAN CORPUSCULAR HGB CONC 33.9 G/dL (31.0-37.0); MEAN CORPUSCULAR VOLUME 94 fL (80-100); MONOCYTES # (AUTO) 0.7 K/uL (0.1-1.0); MONOCYTES % (AUTO) 8.8 % (2.0-9.0); NEUTROPHILS # (AUTO) 4.8 K/uL (1.8-7.7); PLATELET COUNT (AUTO) 238 K/uL (150-450); RED BLOOD CELL COUNT(AUTO) 3.68 MIL/uL (4.50-5.90); RED CELL DISTRIBUTION WIDTH 15.2 % (11.5-14.5); WHITE BLOOD COUNT (AUTO) 7.6 K/uL (4.5-11.0)
[2024-11-28 23:44] LABS: ANION GAP 8 mmol/L (8-16); CALCIUM, TOTAL 9.2 mg/dL (8.8-10.5); CARBON DIOXIDE 30 mmol/L (22-29); CHLORIDE 100 mmol/L (98-107); CREATININE 1.05 mg/dL (0.60-1.30); GLOMERULAR FILTR. RATE CALC > 60 mL/min (>60); GLUCOSE,RANDOM 92 mg/dL (70-110); POTASSIUM 4.5 mmol/L (3.5-5.1); SODIUM SERUM 138 mmol/L (136-145); UREA NITROGEN, BLOOD 17 mg/dL (7-18)
[2024-11-28 23:50] LABS: ALANINE AMINOTRANSFERASE 15 U/L (12-78); ALBUMIN 3.5 g/dL (3.4-5.0); ALKALINE PHOSPHATASE 87 U/L (46-116); ASPARTATE AMINOTRANSFERASE 11 U/L (15-37); BILIRUBIN,TOTAL 0.6 mg/dL (0.1-1.0); TOTAL PROTEIN, SERUM 6.8 g/dL (6.4-8.2)
[2024-11-28 23:54] LABS: ALCOHOL, BLOOD (SERUM) < 3 mg/dL (0-10)
[2024-11-29] MEDS: DiphenhydrAMINE HCL 25 MG CAPSULE PO ONE (00:03)
[2024-11-29] MEDS: OLANZapine 5 MG TABLET PO ONE (00:03)
== END 2024-11-29 01:00 | disposition home or self-care (01) ==
LOC: EMS 22:35
DX: F20.9 Schizophrenia, unspecified (principal); F17.210 Nicotine dependence, cigarettes, uncomplicated; F15.10 Other stimulant abuse, uncomplicated; Z88.8 Allergy status to other drugs, medicaments and biological substances; Z79.899 Other long term (current) drug therapy
CPT/HCPCS: 99285; 80048; 80076; 85025; 36415; G0480

== ENCOUNTER 2024-12-25 21:57 | Emergency (ER) | payer MEDICARE, OTHER ==
[~2024-12-25] VITALS: Ht 188 cm; Wt 95.9 kg
[~2024-12-25 21:57] MED LIST changes: -QUET100T PO; -SERT-158 PO
[2024-12-25 22:37] VITALS: BP 95/65; PULSE 62; RESP 16; TEMP 97.5; O2SAT 95
[2024-12-25 23:14] LABS: PLATELET COUNT (AUTO) 227 K/uL (150-450); RED BLOOD CELL COUNT(AUTO) 3.33 MIL/uL (4.50-5.90); RED CELL DISTRIBUTION WIDTH 14.1 % (11.5-14.5); WHITE BLOOD COUNT (AUTO) 5.6 K/uL (4.5-11.0)
[2024-12-25 23:22] LABS: CALCIUM, TOTAL 9.0 mg/dL (8.8-10.5); CREATININE 1.22 mg/dL (0.60-1.30); GLOMERULAR FILTR. RATE CALC > 60 mL/min (>60); GLUCOSE,RANDOM 94 mg/dL (70-110); SODIUM SERUM 132 mmol/L (136-145); UREA NITROGEN, BLOOD 15 mg/dL (7-18)
[2024-12-26 00:19] LABS: COVID AG,FIA SOURCE NASAL SWAB
[2024-12-26 00:50] LABS: SARS-COV2 (COVID) ANTIGEN,FIA Negative (Negative)
== END 2024-12-26 01:04 | disposition home or self-care (01) ==
LOC: EMS 21:57
DX: F20.9 Schizophrenia, unspecified (principal); R45.851 Suicidal ideations; Z79.899 Other long term (current) drug therapy; Z20.822 Contact with and (suspected) exposure to COVID-19
CPT/HCPCS: 99283; 87426; 80048; 85025; 36415; G0480

== ENCOUNTER 2025-02-28 15:07 | Inpatient (IN) | payer MEDICARE, MEDICAID ==
[~2025-02-28] VITALS: Ht 185.4 cm; Wt 89.8 kg
[~2025-02-28 15:07] MED LIST changes: -ATEN-73 PO; -DIVA-112 PO; +DIVA-153 PO; -LEVO50TA11 PO; +LURA80TA2 PO; +MELA5TAB40 PO; +NALT50TA33 PO; +PALI117D IM; -RISP2TAB45 PO
[2025-02-28] MEDS ORDERED: RISP-32 PO (15:44)
[2025-02-28] MEDS ORDERED: DIPH-1243 PO (15:44)
[2025-02-28] MEDS ORDERED: DIVA-112 PO (15:44)
[2025-02-28 16:11] LABS: PLATELET COUNT (AUTO) 183 K/uL (150-450); RED BLOOD CELL COUNT(AUTO) 3.22 MIL/uL (4.50-5.90); RED CELL DISTRIBUTION WIDTH 13.7 % (11.5-14.5); WHITE BLOOD COUNT (AUTO) 4.7 K/uL (4.5-11.0)
[2025-02-28 16:24] LABS: CALCIUM, TOTAL 8.8 mg/dL (8.8-10.5); CREATININE 1.15 mg/dL (0.60-1.30); GLOMERULAR FILTR. RATE CALC > 60 mL/min (>60); GLUCOSE,RANDOM 82 mg/dL (70-110); SODIUM SERUM 139 mmol/L (136-145); UREA NITROGEN, BLOOD 19 mg/dL (7-18)
[2025-02-28 19:00] VITALS: O2SAT 100
[2025-02-28 20:13] LABS: COVID AG,FIA SOURCE NASAL SWAB
[2025-02-28 20:31] LABS: SARS-COV2 (COVID) ANTIGEN,FIA Negative (Negative)
[2025-03-01 00:48] VITALS: BP 122/81; PULSE 65; RESP 18; TEMP 98.3; O2SAT 99
[2025-03-01] MEDS ORDERED: ACETAMINOPHEN 325 MG TABLET PO PRN (06:00)
[2025-03-01] MEDS ORDERED: ALBUTEROL SULFATE HFA 90 MCG/PUFF 8 GM INHALER IH PRN (06:00)
[2025-03-01] MEDS ORDERED: IBUPROFEN 600 MG TABLET PO PRN (06:00)
[2025-03-01] MEDS ORDERED: OMEPRAZOLE 20 MG CAPSULE PO PRN (06:00)
[2025-03-01] MEDS ORDERED: MAGNESIUM HYDROXIDE SUSPENSION 30 ML UDCUP PO PRN (06:00)
[2025-03-01] MEDS ORDERED: BACITRACIN 28 GM OINTMENT TP PRN (06:00)
[2025-03-01] MEDS ORDERED: PETROLATUM,WHITE 28 GM JELLY TP PRN (06:00)
[2025-03-01] MEDS ORDERED: BENZOCAINE/MENTHOL [CEPACOL] LOZENGE PO PRN (06:00)
[2025-03-01] MEDS ORDERED: LOPERAMIDE HCL 2 MG CAPSULE PO PRN (06:00)
[2025-03-01] MEDS ORDERED: ONDANSETRON 4 MG TABLET PO PRN (06:00)
[2025-03-01] MEDS ORDERED: DOCUSATE SODIUM 100 MG CAPSULE PO PRN (06:00)
[2025-03-01 08:17] LABS: PLATELET COUNT (AUTO) 189 K/uL (150-450); RED BLOOD CELL COUNT(AUTO) 3.45 MIL/uL (4.50-5.90); RED CELL DISTRIBUTION WIDTH 13.3 % (11.5-14.5); WHITE BLOOD COUNT (AUTO) 5.4 K/uL (4.5-11.0)
[2025-03-01 08:22] VITALS: BP 121/60; PULSE 63; RESP 18; TEMP 98.6; O2SAT 99
[2025-03-01 08:52] LABS: ASPARTATE AMINOTRANSFERASE 16 U/L (15-37); CALCIUM, TOTAL 8.5 mg/dL (8.8-10.5); CHOL/HDL RATIO 3.2 (4.2-7.3); CREATININE 1.10 mg/dL (0.60-1.30); GLOMERULAR FILTR. RATE CALC > 60 mL/min (>60); GLUCOSE,RANDOM 84 mg/dL (70-110); LDL CHOL (CALC.) 38 mg/dL (0-130); SODIUM SERUM 141 mmol/L (136-145); TOTAL PROTEIN, SERUM 5.4 g/dL (6.4-8.2); UREA NITROGEN, BLOOD 21 mg/dL (7-18)
[2025-03-01] MEDS: CHOLECALCIFEROL (VIT D3) 1,000 UNITS [25 MCG] TABLET PO SCH (09:26)
[2025-03-01] MEDS: DIVALPROEX SODIUM 500 MG DR TABLET PO SCH (09:29)
[2025-03-01 20:20] VITALS: BP 115/76; PULSE 65; RESP 18; TEMP 98.4; O2SAT 95
[2025-03-02 08:29] VITALS: BP 105/61; PULSE 63; RESP 17; TEMP 98.1; O2SAT 97
[2025-03-02 20:27] VITALS: BP 122/69; PULSE 67; RESP 17; TEMP 98; O2SAT 100
[2025-03-03 08:29] VITALS: BP 116/63; PULSE 72; RESP 18; TEMP 98.4; O2SAT 96
[2025-03-03] MEDS: DIVALPROEX SODIUM 500 MG DR TABLET PO SCH (12:29)
[2025-03-03 20:24] VITALS: BP 118/66; PULSE 69; RESP 17; TEMP 98; O2SAT 99
[2025-03-03] MEDS: ZOLPIDEM TARTRATE 10 MG TABLET PO PRN (22:03)
[2025-03-04 08:40] VITALS: BP 123/72; PULSE 64; RESP 18; TEMP 98.1; O2SAT 95
[2025-03-04 20:11] VITALS: BP 119/70; PULSE 60; RESP 18; TEMP 98.7; O2SAT 98
[2025-03-05 08:15] VITALS: BP 111/62; PULSE 65; RESP 18; TEMP 98.2; O2SAT 98
[2025-03-05] MEDS: MAG HYDROX/ALUMINUM HYD/SIMETH ES 30 ML SUSPENSION UDCUP PO PRN (13:29)
[2025-03-05] MEDS ORDERED: NALT50TA33 PO (16:41)
[2025-03-05] MEDS ORDERED: MELA5TAB40 PO (16:41)
[2025-03-05] MEDS ORDERED: DIVA-112 PO (16:41)
[2025-03-05] MEDS ORDERED: RISP3TAB77 PO (16:41)
[2025-03-05 20:23] VITALS: BP 131/76; PULSE 76; RESP 18; TEMP 99.7; O2SAT 98
[2025-03-06 08:31] VITALS: BP 110/61; PULSE 66; RESP 18; TEMP 98.9; O2SAT 95
== END 2025-03-06 12:22 | disposition home or self-care (01) | DRG 885 ==
LOC: EMS 17:31 → UNDOADMIN 22:08 → B2X 22:08
PROVIDERS: ADMIT Psychiatry & Neurology Psychiatry; ATTEND Psychiatry & Neurology Psychiatry
PROC: GZ56ZZZ Individual Psychotherapy, Supportive (ICD-10-PCS; 2025-03-03)
PROC: GZHZZZZ Group Psychotherapy (ICD-10-PCS; principal; 2025-03-06)
DX: F25.0 Schizoaffective disorder, bipolar type (principal); R45.851 Suicidal ideations; F41.9 Anxiety disorder, unspecified; J44.9 Chronic obstructive pulmonary disease, unspecified; K59.00 Constipation, unspecified; D64.9 Anemia, unspecified; E55.9 Vitamin D deficiency, unspecified; Z60.8 Other problems related to social environment; F10.10 Alcohol abuse, uncomplicated; F19.10 Other psychoactive substance abuse, uncomplicated; Y90.0 Blood alcohol level of less than 20 mg/100 ml; Z55.9 Problems related to education and literacy, unspecified; Z59.9 Problem related to housing and economic circumstances, unspecified; Z63.9 Problem related to primary support group, unspecified; Z65.3 Problems related to other legal circumstances; Z72.0 Tobacco use; Z91.148 Patient's other noncompliance with medication regimen for other reason; Z88.8 Allergy status to other drugs, medicaments and biological substances
CPT/HCPCS: 80048; 80053; 80061; 80164; 83036; 84436; 84443; 85025; 87081; 99285; G0480

== ENCOUNTER 2025-05-19 17:24 | Emergency (ER) | payer MEDICARE, OTHER ==
[~2025-05-19] VITALS: Ht 188 cm; Wt 89.0 kg
[~2025-05-19 17:24] MED LIST changes: +DIVA-112 PO; -DIVA-153 PO; -LURA80TA2 PO; -PALI117D IM; +RISP3TAB77 PO
[2025-05-19 17:48] LABS: CALCIUM, TOTAL 9.1 mg/dL (8.8-10.5); CREATININE 0.84 mg/dL (0.60-1.30); GLOMERULAR FILTR. RATE CALC > 60 mL/min (>60); GLUCOSE,RANDOM 115 mg/dL (70-110); SODIUM SERUM 139 mmol/L (136-145); UREA NITROGEN, BLOOD 18 mg/dL (7-18)
[2025-05-19 17:50] VITALS: BP 108/78; PULSE 72; RESP 18; TEMP 98.1; O2SAT 100
[2025-05-19 17:50] LABS: PLATELET COUNT (AUTO) 242 K/uL (150-450); RED BLOOD CELL COUNT(AUTO) 3.01 MIL/uL (4.50-5.90); RED CELL DISTRIBUTION WIDTH 15.9 % (11.5-14.5); WHITE BLOOD COUNT (AUTO) 5.4 K/uL (4.5-11.0)
[2025-05-19 18:18] LABS: COVID AG,FIA SOURCE NASAL SWAB
[2025-05-19 19:00] LABS: SARS-COV2 (COVID) ANTIGEN,FIA Negative (Negative)
== END 2025-05-19 23:00 | disposition home or self-care (01) ==
LOC: EMS 17:26
DX: F25.9 Schizoaffective disorder, unspecified (principal); R45.851 Suicidal ideations; Z79.899 Other long term (current) drug therapy; Z20.822 Contact with and (suspected) exposure to COVID-19
CPT/HCPCS: 99284; 87426; 80048; 80164; 85025; 36415; G0480

== ENCOUNTER 2025-06-02 01:06 | Inpatient (IN) | payer MEDICARE, MEDICAID ==
[~2025-06-02] VITALS: Ht 185.4 cm; Wt 89.6 kg
[2025-06-02 01:59] LABS: PLATELET COUNT (AUTO) 192 K/uL (150-450); RED BLOOD CELL COUNT(AUTO) 3.02 MIL/uL (4.50-5.90); RED CELL DISTRIBUTION WIDTH 16.4 % (11.5-14.5); WHITE BLOOD COUNT (AUTO) 6.1 K/uL (4.5-11.0)
[2025-06-02 02:10] LABS: CALCIUM, TOTAL 8.9 mg/dL (8.8-10.5); CREATININE 0.80 mg/dL (0.60-1.30); GLOMERULAR FILTR. RATE CALC > 60 mL/min (>60); GLUCOSE,RANDOM 76 mg/dL (70-110); SODIUM SERUM 134 mmol/L (136-145); UREA NITROGEN, BLOOD 15 mg/dL (7-18)
[2025-06-02 04:05] LABS: COVID AG,FIA SOURCE NASAL SWAB
[2025-06-02 04:31] LABS: SARS-COV2 (COVID) ANTIGEN,FIA Negative (Negative)
[2025-06-02] MEDS ORDERED: ZOLPIDEM TARTRATE 10 MG TABLET PO PRN (05:15)
[2025-06-02 08:39] LABS: AMPHET/METH SCREEN,URINE NEGATIVE (NEGATIVE); BARBITURATE SCREEN, URINE NEGATIVE (NEGATIVE); CANNABINOID SCREEN,URINE NEGATIVE (NEGATIVE); COCAINE SCREEN,URINE NEGATIVE (NEGATIVE); METHADONE SCREEN, URINE NEGATIVE (NEGATIVE)
[2025-06-02 08:45] LABS: APPEARANCE,URINE CLEAR (CLEAR); GLUCOSE, URINE (UA) NEGATIVE (NEGATIVE); LEUKOCYTE ESTERASE ,URINE NEGATIVE (NEGATIVE); NITRATE,URINE NEGATIVE (NEGATIVE); OCCULT BLOOD,URINE NEGATIVE (NEGATIVE); PH,URINE DRUG SCREEN 6.5 (5.0-8.0); SPECIFIC GRAVITIY, URINE 1.008 (1.003-1.030)
[2025-06-02 08:50] LABS: ALCOHOL, URINE DRUG SCREEN NEGATIVE (NEGATIVE)
[2025-06-02] MEDS ORDERED: INFLUENZA VIRUS VACCINE TVS (6MO+) 2025-26/PF 45 MCG/0.5 ML SYRINGE IM. ONE (15:00)
[2025-06-02 15:29] VITALS: BP 115/75; PULSE 72; RESP 18; TEMP 96.8; O2SAT 0
[2025-06-02 15:31] VITALS: BP 115/75; PULSE 72; RESP 18; TEMP 96.8; O2SAT 98
[2025-06-02] MEDS ORDERED: ACETAMINOPHEN 325 MG TABLET PO PRN (17:30)
[2025-06-02] MEDS ORDERED: MAG HYDROX/ALUMINUM HYD/SIMETH ES 30 ML SUSPENSION UDCUP PO PRN (17:30)
[2025-06-02] MEDS ORDERED: GuaiFENesin/D-METHORPHAN [SUGAR-FREE] 200-20MG/10 ML SYRUP UDCUP PO PRN (17:30)
[2025-06-02] MEDS ORDERED: PROMETHAZINE HCL 25 MG TABLET PO PRN (17:30)
[2025-06-02] MEDS ORDERED: MAGNESIUM HYDROXIDE SUSPENSION 30 ML UDCUP PO PRN (17:30)
[2025-06-02] MEDS ORDERED: LOPERAMIDE HCL 2 MG CAPSULE PO PRN (17:30)
[2025-06-02 20:40] VITALS: BP 101/55; PULSE 80; RESP 18; TEMP 98.2; O2SAT 100
[2025-06-02 21:06] VITALS: BP 101/55; PULSE 80; RESP 18; TEMP 98.2; O2SAT 100
[2025-06-02] MEDS: DIVALPROEX SODIUM 500 MG ER TABLET PO SCH (21:37)
[2025-06-02] MEDS: MELATONIN 5 MG TABLET PO SCH (21:37)
[2025-06-03] MEDS: THIAMINE 100 MG TABLET PO SCH (09:36)
[2025-06-03] MEDS: FOLIC ACID 1 MG TABLET PO SCH (09:36)
[2025-06-03] MEDS: MULTIVITAMINS WITH MINERALS, THERAPEUTIC TABLET PO SCH (09:36)
[2025-06-03] MEDS: NALTREXONE HCL 50 MG TABLET PO SCH (09:36)
[2025-06-03 11:41] LABS: PLATELET COUNT (AUTO) 206 K/uL (150-450); RED BLOOD CELL COUNT(AUTO) 3.17 MIL/uL (4.50-5.90); RED CELL DISTRIBUTION WIDTH 15.9 % (11.5-14.5); WHITE BLOOD COUNT (AUTO) 4.3 K/uL (4.5-11.0)
[2025-06-03 20:00] VITALS: BP 118/73; PULSE 65; RESP 18; TEMP 97.6; O2SAT 98
[2025-06-04 09:03] VITALS: BP 114/65; PULSE 55; RESP 18; TEMP 97.5; O2SAT 98
[2025-06-04 22:25] VITALS: RESP 18
[2025-06-05 13:55] VITALS: BP 124/65; PULSE 74; RESP 18; TEMP 97.7; O2SAT 98
[2025-06-05 20:00] VITALS: BP 129/74; PULSE 74; RESP 18; TEMP 97.7; O2SAT 99
[2025-06-06 08:00] VITALS: BP 128/76; PULSE 72; RESP 18; TEMP 97.5; O2SAT 99
[2025-06-06 20:00] VITALS: BP 117/72; PULSE 75; RESP 18; TEMP 97.5; O2SAT 99
[2025-06-07 08:00] VITALS: BP 116/90; PULSE 68; RESP 18; TEMP 97.1; O2SAT 100
[2025-06-07 20:00] VITALS: BP 124/69; PULSE 67; RESP 16; TEMP 97.7; O2SAT 99
[2025-06-08 10:53] VITALS: BP 141/81; PULSE 66; RESP 18; TEMP 97; O2SAT 96
[2025-06-08 21:29] VITALS: BP 128/80; PULSE 71; RESP 19; TEMP 98.1; O2SAT 98
[2025-06-09 13:28] VITALS: BP 123/69; PULSE 79; RESP 18; TEMP 97.8; O2SAT 97
[2025-06-09 22:01] VITALS: BP 132/72; PULSE 80; RESP 17; TEMP 98.1; O2SAT 98
[2025-06-10 08:20] VITALS: BP 141/89; PULSE 72; RESP 17; TEMP 97.9; O2SAT 96
[2025-06-10 09:37] LABS: PLATELET COUNT (AUTO) 196 K/uL (150-450); RED BLOOD CELL COUNT(AUTO) 3.69 MIL/uL (4.50-5.90); RED CELL DISTRIBUTION WIDTH 15.2 % (11.5-14.5); WHITE BLOOD COUNT (AUTO) 7.1 K/uL (4.5-11.0)
[2025-06-10 20:02] VITALS: BP 115/68; PULSE 83; RESP 18; TEMP 98.4; O2SAT 99
[2025-06-11 10:48] VITALS: BP 129/76; PULSE 86; RESP 17; TEMP 97.8; O2SAT 98
[2025-06-11 21:50] VITALS: BP 126/75; PULSE 81; RESP 18; TEMP 97.9; O2SAT 98
[2025-06-12 08:00] VITALS: BP 123/85; PULSE 103; RESP 18; TEMP 97; O2SAT 99
[2025-06-12 12:11] LABS: GLUCOMETER DEV NAME(LOC) 3EX.2; GLUCOSE,POINT OF CARE 127 MG/DL (70-110)
== END 2025-06-12 12:00 | disposition home or self-care (01) | DRG 885 ==
LOC: EMS 01:08 → 3EX 10:43
PROVIDERS: ADMIT Psychiatry & Neurology Psychiatry; ATTEND Psychiatry & Neurology Psychiatry
PROC: GZHZZZZ Group Psychotherapy (ICD-10-PCS; principal; 2025-06-02)
PROC: GZ58ZZZ Individual Psychotherapy, Cognitive-Behavioral (ICD-10-PCS; 2025-06-02)
PROC: GZ56ZZZ Individual Psychotherapy, Supportive (ICD-10-PCS; 2025-06-03)
DX: F20.9 Schizophrenia, unspecified (principal); R45.851 Suicidal ideations; Z91.148 Patient's other noncompliance with medication regimen for other reason; E03.9 Hypothyroidism, unspecified; I10 Essential (primary) hypertension; J44.9 Chronic obstructive pulmonary disease, unspecified; D64.9 Anemia, unspecified; E78.00 Pure hypercholesterolemia, unspecified; F41.9 Anxiety disorder, unspecified; Z60.8 Other problems related to social environment; K21.9 Gastro-esophageal reflux disease without esophagitis; F17.200 Nicotine dependence, unspecified, uncomplicated; Z63.9 Problem related to primary support group, unspecified; Z59.9 Problem related to housing and economic circumstances, unspecified; Z65.3 Problems related to other legal circumstances; Z55.9 Problems related to education and literacy, unspecified
CPT/HCPCS: 80048; 80164; 80307; 81003; 82962; 85025; 86592; 87070; 87081; 87205; 99285; G0378; G0480